=== PATIENT | female | born 1980 | race Caucasian/White ===

== ENCOUNTER 2024-07-23 09:09 | Emergency (ER) | payer MEDICARE, OTHER, SELFPAY ==
[2024-07-23 09:15] VITALS: BP 131/90
--- NOTE | 2024-07-23 09:45 | ED.GENMED ---
History of Present Illness
<RICCARDO Islas Last Filed: 07/23/24 12:59>
General
Chief Complaint: Abdominal Pain
Source: patient
Exam Limitations: none
Time Seen by Provider: 07/23/24 09:30
Nursing documentation reviewed up to this point in time: agreed with
History of Present Illness
History of Present Illness:
43-year-old female presents emergency department today with concerns of abdominal pain and swelling. Patient states that she for started to notice bumps around her lower abdomen/pelvic region 2 days ago. Patient states that for the past 2 days,
new onset gotten larger and more painful. There is also surrounding area of redness. Patient states that she is currently getting over strep throat but denies any fevers or chills, nausea or vomiting, diarrhea, constipation. Patient has had a
past abdominal surgical history of , liposuction. Patient denies any active drainage from the area. Patient denies any new creams or lotions. Patient denies radiation of the pain. Patient denies hematuria, burning with urination.
Past History
<RICCARDO Islas Last Filed: 07/23/24 12:59>
Past History
ED Past Medical History: Psychiatric (Bipolar disorder, anxiety, depression) and Other (Migraines)
ED Past Surgical History: Appendectomy, Cholecystectomy, , Orthopedic and Other (Breast augmentation, abdominoplasty, gastric bypass)
Social History
Tobacco: Non-smoker
Alcohol: None
Drug: None
Living: with family
Review of Systems
<RICCARDO Islas Last Filed: 07/23/24 12:59>
Review of Systems
All Other Systems: ROS reviewed and negative except as documented in HPI and ROS
Phy Exam
<RICCARDO Islas Last Filed: 07/23/24 12:59>
Physical Exam
Physical Exam:
General: Patient is well appearing and in no acute distress; non-toxic
Skin: Tender 3.5 cm fluctuant mass noted to left suprapubic region with surrounding pustules
Head: Normocephalic, atraumatic
Eyes: Sclera non-icteric. EOMs intact.
Cardiac: Tachycardia noted otherwise regular rhythm, no murmurs
Peripheral Vascular: No lower extremity swelling or edema
Pulm: Normal respiratory effort
Abdomen: Left sided abdominal tenderness noted
Neuro: CN II-XII intact, no focal neurologic deficits.
Psychiatric: Appropriate mood and affect.
Course
<Kirstin Horta PA-C - Last Filed: 07/23/24 12:59>
Orders/Labs/Results
Orders:
Orders
07/23/24 09:18
EKG [Electrocardiogram (*1)] Urgent
Reason for Study: Tachycardia
07/23/24 09:19
EKG- Treatment ONCE
07/23/24 09:50
Ibuprofen [Motrin] 600 mg PO NOW STA
07/23/24 11:23
Wound Culture [Wound/Abscess/Other Culture] Urgent
SUSY Source: Abscess
Specimen Description:
Date Specimen was Collected: 07/23/24
Time Specimen was Collected: 11:22
Vital Signs
Initial and Last Documented VS:
Initial Vital Signs
Temp Pulse Resp BP Pulse Ox
99.2 F 138 18 131/90 92
07/23/24 09:15 07/23/24 09:15 07/23/24 09:15 07/23/24 09:15 07/23/24 09:15
Last Documented Vital Signs
Temp Pulse Resp BP Pulse Ox
99.2 F 115 20 129/83 95
07/23/24 09:15 07/23/24 11:29 07/23/24 11:29 07/23/24 11:29 07/23/24 11:29
<Venkat Sandoval DO - Last Filed: 07/23/24 12:30>
Orders/Labs/Results
Orders:
Orders
07/23/24 09:18
EKG [Electrocardiogram (*1)] Urgent
Reason for Study: Tachycardia
07/23/24 09:19
EKG- Treatment ONCE
07/23/24 09:50
Ibuprofen [Motrin] 600 mg PO NOW STA
07/23/24 11:23
Wound Culture [Wound/Abscess/Other Culture] Urgent
SUSY Source: Abscess
Specimen Description:
Date Specimen was Collected: 07/23/24
Time Specimen was Collected: 11:22
Vital Signs
Initial and Last Documented VS:
Initial Vital Signs
Temp Pulse Resp BP Pulse Ox
99.2 F 138 18 131/90 92
07/23/24 09:15 07/23/24 09:15 07/23/24 09:15 07/23/24 09:15 07/23/24 09:15
Last Documented Vital Signs
Temp Pulse Resp BP Pulse Ox
99.2 F 115 20 129/83 95
07/23/24 09:15 07/23/24 11:29 07/23/24 11:29 07/23/24 11:29 07/23/24 11:29
Procedures
<Kirstin Horta PA-C - Last Filed: 07/23/24 12:59>
Incision/Drainage/Joint Aspiration
left pelvic region:
Anethesia: 1% Lidocaine with Epi
Preparation: cleaned with alcohol wipe
Type of procedure: incise and drain
Nature of site: abscess
Description of abscess: greater than 3cm
Loculations broken up: No
How much fluid was obtained?: large amount
Fluid description: purulent
Treatment: left open for drainage
<Kirstin Horta PA-C - Last Filed: 07/23/24 12:59>
MDM/Problems Addressed
Differential Diagnosis Includes:
folliculitis, abscess, cellulitis, erysipelas, seroma
MDM/Problems Addressed:
43-year-old female presents emergency department today with concerns of abdominal pain and swelling. Patient states that she for started to notice bumps around her lower abdomen/pelvic region 2 days ago. On physical exam, she is well-appearing,
she is afebrile, is a bit tachycardic but suspect this is secondary to her pain, did give her ibuprofen. She is concurrently being treated for strep throat with amoxicillin as well. She has a 3.5 cm fluctuant mass on the left suprapelvic region
consistent w/ abscess. Abscess was incised and drained, draining a large amount of purulent fluid. Wound culture was obtained. Considering surrounding cellulitis, and considering patient almost finished course of amoxicillin, will start on bactrim.
Did discuss that when taking valsartan, this may increase potassium levels in the blood. I did stress importance of getting blood work done to check these levels, patient states that she will follow-up with her primary to get this completed.
Patient stable for discharge. Return precautions discussed, wound care discussed.
Chronic conditions affecting care:
migraines, HTN, GERD
<RICCARDO Islas Last Filed: 07/23/24 12:59>
*Pulse Oximetry
Patient hypoxic: no
*Critical Care Note
Total Time (30-74mins, 75-104mins- exclusive of procedures): Not Applicable
Data Reviewed
Review of Other/Old Records Reveals: Records (Reviewed ER physician documentation , patient seen for orthostatic hypotension, patient not seen in the ER for similar skin issue in the past) and Discharge Summary (no discharge summary in
[facility] to review)
Source: patient and records
Further Testing Considered But Not Given:
n/a
<Kirstin Horta PA-C - Last Filed: 07/23/24 12:59>
Patient Management
Escalation/DeEscalation of care consider admission/obs:
Admit not indicated, patient stable for discharge
ED Attending Note
<Kirstin Horta PA-C - Last Filed: 07/23/24 12:59>
-
Portions of this chart may have been created with voice recognition software.� Occasional wrong word or��sound alike� substitutions may have occurred due to the inherent limitations of voice recognition software.
<Venkat Sandoval, - Last Filed: 07/23/24 12:30>
ED Attending Note
Patient seen and examined by attending physician: Yes
I performed the substantive portion of visit, reviewed & personally made and approve the management plan that is documented in note by myself or IAN.: Yes
ED Attending Note:
I agree with Kirstin's note.
Patient presents with pain, swelling in low abdominal wall. Symptoms have been progressing over the past few days.
Physical exam
Abdomen: Area of erythema and swelling noted lower abdomen above the suprapubic region into the left of midline. There are areas of fluctuance noted. Area is quite tender to palpation.
Presentation consistent with abdominal wall abscess. Help we will perform an incision and drainage.
Discharge Plan
Departure
Patient Disposition: Home (Routine Discharge)
Date of Disposition: 07/23/24
Time of Disposition: 10:31
Patient with high blood pressure during this ER visit?: Yes
Condition: Good
Discharge Problem:
Abscess of pubic region, Cellulitis
Instructions: Abscess Incision and Drainage (DC), Bacterial Wound Culture, BLOOD PRESSURE
Prescriptions:
New
sulfamethoxazole-trimethoprim [Bactrim DS] 800-160 mg tablet
1 tab PO BID 5 Days Qty: 10 0RF
No Action
sumatriptan succinate [Imitrex] 100 MG tablet
100 mg PO PRN PRN (Reason: migraines)
dextroamphetamine-amphetamine [Adderall] 20 MG tablet
1 tab PO TID
omeprazole 40 MG capsule,delayed release(DR/EC)
40 mg PO DAILY
valsartan [Diovan] 160 MG tablet
160 mg PO DAILY
lorazepam 1 MG tablet
1 mg PO Q8 PRN (Reason: anxiety/panic attacks)
Referrals:
Thais Fitzpatrick CRNP [Family Provider] -
Activity Restrictions/Additional Instructions:
Please return to the emergency department should you experience chest pain, shortness of breath, fevers or chills, nausea or vomiting, or any other signs or symptoms concerning to you.
You can do sits baths to help facilitate drainage. Please change dressing once daily.
You should receive a call if your would culture results need alternative antibiotic therapy.
Please follow up with your primary care provider.
Interventions
Interventions:
*Risk Screen - Suicide Last Done: 07/23/24 09:15
*General Assessment Last Done: 07/23/24 09:15
*Neglect/Abuse Screening Last Done: 07/23/24 10:00
*ED COVID-19 Vaccine History Last Done: 07/23/24 09:15
*Nursing Disposition Last Done: 07/23/24 11:29
LU-Dnjbgn-Srrgpwrfzs Assessment Last Done: 07/23/24 10:00
Discharge Date and Time
Discharge Date/Time: 07/23/24 11:30
Print Language: YORUBA
[2024-07-23 10:00] VITALS: BP 122/75
[2024-07-23] MEDS: MOTRIN 600 MG PO (10:03)
[2024-07-23 11:29] VITALS: BP 129/83
== END 2024-07-23 11:30 | disposition home or self-care (01) ==
LOC: EMR 09:09
PROVIDERS: EMERGENCY PHYSICIAN Emergency Medicine; FAMILY PHYSICIAN Nurse Practitioner Adult Health
DX: L02.211 Cutaneous abscess of abdominal wall (principal); I10 Essential (primary) hypertension; K21.9 Gastro-esophageal reflux disease without esophagitis; Z98.84 Bariatric surgery status; Z90.49 Acquired absence of other specified parts of digestive tract
CPT/HCPCS: 10060; 99284; 87070; 87147; 87186; 87205; 93005

== ENCOUNTER 2025-02-24 19:20 | Emergency (ER) | payer MEDICARE, OTHER, SELFPAY ==
[2025-02-24 19:26] VITALS: BP 136/96
[2025-02-24 19:41] LABS: % Basophils 0.9 % (0-2); % Eosinophils 0.2 % (0-6); % Immature Granulocytes 0.5 % (0-0.5); % Lymphocytes 22.5 % (20.5-51.1); % Monocytes 6.9 % (1.7-9.3); Absolute Basophils 0.1 10^3/uL (0-0.2); Absolute Immature Granulocytes 0.1 10^3/uL (0-0.05); Absolute Lymphocytes 2.3 10^3/uL (1.2-3.4); Absolute Monocytes 0.7 10^3/uL (0.1-0.6); Absolute Neutrophils 7.1 10^3/uL (1.4-6.5); Hematocrit 43.4 % (37.0-47.0); Hemoglobin 15.2 g/dL (12.0-16.0); Mean Corpuscular Volume 85.6 fL (81.0-99.0); Mean Platelet Volume 9.4 fL (7.4-10.4); Nucleated Red Blood Cells % 0 %; Platelet Count 495 10^3/uL (130-400); Red Blood Cell Count 5.07 10^6/uL (4.20-5.40); Red Cell Dist. Width 12.9 % (11.5-14.5); White Blood Cell Count 10.3 10^3/uL (4.8-10.8)
[2025-02-24 19:49] LABS: HCG, Serum Qualitative Screen Negative
[2025-02-24 19:56] LABS: AST (SGOT) 22 U/L (14-36); Albumin 5.3 g/dl (3.5-5.0); Alkaline Phosphatase 68 U/L (38-126); Blood Urea Nitrogen 9 mg/dl (7-17); Calcium 10.4 mg/dl (8.4-10.2); Carbon Dioxide 10 mmol/L (22-30); Chloride 111 mmol/L (98-107); Estimated Creatinine Clearance 73 ml/min; Glucose 60 mg/dl (70-99); Sodium 140 mmol/L (135-145); Total Bilirubin 1.2 mg/dl (0.2-1.3); Total Protein 8.5 g/dl (6.3-8.2); eGFR > 60.00
[2025-02-24 20:00] VITALS: BP 124/94
[2025-02-24 20:26] LABS: ALT (SGPT) 26 U/L (0-35)
[2025-02-24] MEDS: NSS 1000 IV (20:36)
[2025-02-24] MEDS: ATIVAN 1 MG PO (20:36)
[2025-02-24 20:55] LABS: Glucose - Point of Care 79 mg/dl (70-99)
[2025-02-24] MEDS: TOPAMAX 25 MG PO (21:21)
--- NOTE | 2025-02-24 21:31 | ED.GENMED ---
History of Present Illness
General
Chief Complaint: Seizure
Source: patient and spouse
Exam Limitations: none
Time Seen by Provider: 02/24/25 20:15
Nursing documentation reviewed up to this point in time: agreed with
History of Present Illness
History of Present Illness:
44-year-old female with a past medical history of migraines, bipolar with depression/anxiety who presents to the emergency room with her after apparent seizure. Patient was talking to a friend when she began to become very tense had some
slight shaking/tremors and lost consciousness. No tongue biting or incontinence noted but patient was apparently 'out of it' until EMS arrived. Per EMS on their arrival patient was postictal. Since arrival in the emergency room patient is back to
her normal mentation and says she feels fine with no acute complaints. She did not have and does not have any chest pain, shortness of breath, palpitations. She had a headache earlier today and took some Imitrex but denies headache at present.
She has had 2 similar episodes in the past�she says that she has seen a neurologist (Dr. Medina) for migraines and to evaluate after these episodes but was told that she had no seizure activity on EEG. She said she has had head imaging in the past
which has been negative. She is on lorazepam as needed for anxiety and has not taken a dose for the past few days but says that she only uses it sporadically every few days and does not use it heavily or consistently.
Past History
Past History
ED Past Medical History: Psychiatric (Bipolar disorder, anxiety, depression) and Other (Migraines)
ED Past Surgical History: Appendectomy, Cholecystectomy, , Orthopedic and Other (Breast augmentation, abdominoplasty, gastric bypass)
Social History
Tobacco: Non-smoker
Alcohol: None
Drug: None
Living: with family
Review of Systems
Review of Systems
All Other Systems: ROS reviewed and negative except as documented in HPI and ROS
Constitutional: Denies fever
Respiratory: Denies trouble breathing
Cardiac: Denies chest pain or palpitations
ABD/GI: Denies abdominal pain or nausea
Neurological: Reports other (Seizure); Denies dizzy, headache, weakness or numbness
Phy Exam
Physical Exam
Physical Exam:
General: Awake, alert, oriented x3; no acute distress
Head: Normocephalic, atraumatic
Eyes: Conjunctiva normal, EOMI, pupils equal round and reactive to light bilaterally
Throat: Airway intact, handling secretions, tongue atraumatic
Neck: Trachea midline, supple without meningismus
Lungs: Clear to auscultation bilaterally, no wheezing, rales, rhonchi
Heart: Regular rate and rhythm, no murmurs, gallops, or rubs
Abd: Soft, non distended, nontender
Neuro: Cranial nerves intact 2 through 12, speech fluid without dysarthria or aphasia, no limb ataxia, motor and sensory intact in all extremities
Skin: no signs of trauma
Extremities: No edema in extremities, equal pulses in all extremities
Scores
Heart Failure Risk
Heart Failure Risk Score: Not Applicable
Heart Score for Chest Pain Patients
STEMI patient?: Not applicable
Withdrawal Assessment of Alcohol
Withdrawal Assessment Completed?: Not applicable
Course
Orders/Labs/Results
Orders:
Orders
02/24/25 19:28
EKG [Electrocardiogram (*1)] Urgent
Reason for Study: Syncope
02/24/25 19:29
EKG- Treatment ONCE
02/24/25 19:30
Test Result ONCE
02/24/25 19:31
Complete Blood Count/With Diff Urgent
Comprehensive Metabolic Panel Urgent
, Serum Qualitative Screen [HCG, Serum Qualitative Screen] Urgent
02/24/25 20:26
0.9% Sodium Chloride 1000 ml [Nss] 1,000 ml IV BOLUS
Lorazepam [Ativan] 1 mg PO NOW STA
02/24/25 20:28
Bedside Glucose- Treatment ONCE
02/24/25 21:04
Topiramate [Topamax] 25 mg PO NOW STA
02/24/25 22:03
Basic Metabolic Panel Urgent
02/24/25 22:41
Bedside Glucose- Treatment ONCE
Abnormal Lab Results
02/24/25 02/24/25
19:31 22:03
Plt Count 495 H 10^3/uL
(130-400)
Abs Immat Gran (auto) 0.1 H 10^3/uL
(0-0.05)
Absolute Neuts (auto) 7.1 H 10^3/uL
(1.4-6.5)
Absolute Monos (auto) 0.7 H 10^3/uL
(0.1-0.6)
Chloride 111 H mmol/L 113 H mmol/L
(98-107) (98-107)
Carbon Dioxide 10 L* mmol/L 19 L mmol/L
(22-30) (22-30)
Glucose 60 L mg/dl
(70-99)
Calcium 10.4 H mg/dl
(8.4-10.2)
Total Protein 8.5 H g/dl
(6.3-8.2)
Albumin 5.3 H g/dl
(3.5-5.0)
02/24/25 19:31
02/24/25 22:03
Vital Signs
Initial and Last Documented VS:
Initial Vital Signs
Pulse Resp BP Pulse Ox
118 20 136/96 97
02/24/25 19:26 02/24/25 19:26 02/24/25 19:26 02/24/25 19:26
Last Documented Vital Signs
Temp Pulse Resp BP Pulse Ox
37.0 C 96 22 115/83 98
02/24/25 20:00 02/24/25 22:00 02/24/25 22:00 02/24/25 22:00 02/24/25 22:00
MDM/Problems Addressed
Differential Diagnosis Includes:
Seizure disorder, pseudoseizure, withdrawal seizure, syncope with myoclonic jerks
MDM/Problems Addressed:
44-year-old female presents after loss of consciousness and some rigidity/tremor. Episode had postictal period and by history this sounds like a seizure. She is currently back to her baseline mental status. She has had 2 such episodes in the past
with thus far nondiagnostic outpatient workup. She is not on AEDs but does take benzodiazepines. While she has not taken benzodiazepine for the past few days she is not exhibiting any signs of withdrawal at this point�while she had triage
tachycardia her heart rate is normal on my assessment and she is normotensive with no symptoms of withdrawal. She had lab work sent in triage including a CBC and a CMP�CMP showed metabolic acidosis which supports that this was a seizure episode.
Will provide fluids and repeat chemistry to ensure improvement. She did have some hypoglycemia on chemistry with a glucose of 60�repeat Accu-Chek 79 patient asymptomatic and eating here. Will continue to monitor for recurrence. Will discuss with
patient's primary neurology team.
Discussed with patient's neurology team and I agree that this is concerning for seizure and given that she has had 2 similar episodes in the past they recommended initiating AED. Given her history of migraines recommend starting Topamax at a dose
of 25 mg twice daily x 7 days and then increasing in increments weekly until she is taking 100 mg twice daily. They will follow-up with patient in the office.
Repeat labs show improvement in bicarb level, glucose has been stable. Patient has been awake and alert, asymptomatic since my initial assessment. I think she is stable for discharge with plan for outpatient neurology follow-up and initiation of
Topamax as discussed above. [employer] form filled out and patient advised not to drive. Patient feels comfortable with this plan. Spoke about return precautions all questions answered.
*Pulse Oximetry
Patient hypoxic: no
*EKG
Interpreted by ED Provider?: Yes
Heart Rate: 118
Rate: tachycardiac
Rhythm: sinus
[place]: normal axis
Interval: normal interval
QRS Pattern: normal QRS
Ischemia: no ischemia
*Critical Care Note
Total Time (30-74mins, 75-104mins- exclusive of procedures): Not Applicable
Data Reviewed
Source: patient, spouse and ambulance crew
Further Testing Considered But Not Given:
Considered CT head
Patient Management
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 Medina at [facility])
ED Attending Note
-
Portions of this chart may have been created with voice recognition software.� Occasional wrong word or��sound alike� substitutions may have occurred due to the inherent limitations of voice recognition software.
Discharge Plan
Departure
Patient Disposition: Home (Routine Discharge)
Date of Disposition: 02/24/25
Time of Disposition: 22:43
Patient with high blood pressure during this ER visit?: Yes
Discharge Problem:
Seizure
Instructions: Seizures, Adult (DC)
Prescriptions:
New
topiramate [Topamax] 25 mg tablet
25 mg PO BID 7 Days Qty: 14 0RF
topiramate [Topamax] 100 mg tablet
100 mg PO BID Qty: 60 0RF
topiramate [Topamax] 50 mg tablet
50 mg PO BID Qty: 14 0RF
topiramate [Topamax] 50 mg tablet
75 mg PO BID 7 Days Qty: 21 0RF
No Action
sumatriptan succinate [Imitrex] 100 MG tablet
100 mg PO PRN PRN (Reason: migraines)
dextroamphetamine-amphetamine [Adderall] 20 MG tablet
1 tab PO TID
omeprazole 40 MG capsule,delayed release(DR/EC)
40 mg PO DAILY
valsartan [Diovan] 160 MG tablet
160 mg PO DAILY
lorazepam 1 MG tablet
1 mg PO Q8 PRN (Reason: anxiety/panic attacks)
sulfamethoxazole-trimethoprim [Bactrim DS] 800-160 mg tablet
1 tab PO BID 5 Days Qty: 10 0RF
Referrals:
Ronald Medina MD [Non-Admitting Privileges, Neurology] - Call in 1-3 days for appt
Thais Fitzpatrick CRNP [Family Provider, General]
Activity Restrictions/Additional Instructions:
You were seen in the emergency room and we are concerned that you had a seizure. After discussion with your neurology team they recommended that we start you on a medicine called Topamax to prevent further episodes. They recommended that you start
the medication at a low dose and increase your dose over the next few weeks according to the following schedule:
Take 25 mg twice a day for the first week
Take 50 mg twice a day for the second week
Take 75 mg twice a day for the third week
Take 100 mg twice a day thereafter
You should not drive starting immediately and should not return to driving until cleared by your neurologist. Make sure you are getting plenty of sleep and drink plenty of fluids and avoid alcohol. You should call your neurologist tomorrow morning
to schedule follow-up in the office as soon as possible.
Thank you for visiting the Emergency Department at [facility].
1. Please schedule a follow up appointment as directed. Call first thing tomorrow morning to make an appointment.
2. If indicated, please take your medications as instructed and indicated on discharge paperwork.
3. If any of your symptoms do not improve, or persist, or become more severe within 6-12 hours, please return to the emergency department for further care.
4. Please return to the emergency department if you develop a headache, neck pain/stiffness, fever greater than 100.4F, chest pain, shortness of breath, persistent nausea, vomiting, slurred speech, difficulty walking, numbness/tingling, weakness,
signs of infection or any other symptoms that are worrisome to you.
Please call [phone] if you have any questions.
Interventions
Interventions:
*Risk Screen - Suicide Last Done: 02/24/25 19:26
*General Assessment Last Done: 02/24/25 19:26
*Neglect/Abuse Screening Last Done: 02/24/25 19:26
*ED- Fall Risk Assessment Last Done: 02/24/25 19:26
ED- Cardiac Assessment Last Done: 02/24/25 19:34
ED- Neurological Assessment Last Done: 02/24/25 19:34
ED- Pulmonary Assessment Last Done: 02/24/25 19:34
Discharge Date and Time
Print Language: [email or web address]
[2025-02-24 22:00] VITALS: BP 115/83
[2025-02-24 22:41] LABS: Blood Urea Nitrogen 10 mg/dl (7-17); Calcium 9.2 mg/dl (8.4-10.2); Carbon Dioxide 19 mmol/L (22-30); Chloride 113 mmol/L (98-107); Estimated Creatinine Clearance 84 ml/min; Glucose 92 mg/dl (70-99); Potassium 4.6 mmol/L (3.5-5.1); Sodium 139 mmol/L (135-145); eGFR > 60.00
[2025-02-24 22:44] LABS: Glucose - Point of Care 87 mg/dl (70-99)
== END 2025-02-24 22:55 | disposition home or self-care (01) ==
LOC: EMR 19:20
PROVIDERS: EMERGENCY PHYSICIAN Emergency Medicine; FAMILY PHYSICIAN Nurse Practitioner Adult Health
DX: R56.9 Unspecified convulsions (principal); F31.9 Bipolar disorder, unspecified; F41.8 Other specified anxiety disorders; E87.20 Acidosis, unspecified; Z90.49 Acquired absence of other specified parts of digestive tract; Z98.84 Bariatric surgery status
CPT/HCPCS: 99283; 80048; 80053; 82962; 84703; 85025; 93005

== ENCOUNTER 2025-04-12 18:18 | Emergency (ER) | payer MEDICARE, OTHER, SELFPAY ==
[2025-04-12 18:22] VITALS: BP 152/110
[2025-04-12 18:48] LABS: Hematocrit 42.0 % (37.0-47.0); Hemoglobin 14.8 g/dL (12.0-16.0); Mean Corp Hgb Conc. 35.2 g/dL (33.0-37.0); Mean Corpuscular Volume 85.5 fL (81.0-99.0); Nucleated Red Blood Cells % 0 %; Platelet Count 446 10^3/uL (130-400); Red Cell Dist. Width 11.9 % (11.5-14.5)
[2025-04-12 18:57] LABS: ALT (SGPT) 11 U/L (0-35); AST (SGOT) 16 U/L (14-36); Albumin 4.7 g/dl (3.5-5.0); Alkaline Phosphatase 111 U/L (38-126); Blood Urea Nitrogen 5 mg/dl (7-17); Calcium 9.9 mg/dl (8.4-10.2); Carbon Dioxide 20 mmol/L (22-30); Chloride 108 mmol/L (98-107); Glucose 106 mg/dl (70-99); Potassium 4.0 mmol/L (3.5-5.1); Sodium 138 mmol/L (135-145); Total Protein 7.5 g/dl (6.3-8.2); eGFR > 60.00
[2025-04-12 19:08] LABS: Troponin I 0.016 ng/ml
[2025-04-12 19:30] VITALS: BP 152/110
== END 2025-04-12 19:43 ==
LOC: EMR 18:18
PROVIDERS: Emergency Medicine
DX: R47.81 Slurred speech (principal); R51.9 Headache, unspecified
CPT/HCPCS: 80053; 84443; 84484; 85025; 93005